=== PATIENT | female | born 1955 | race Caucasian/White ===

== ENCOUNTER → 2021-08-28 | Day surgery (SDC) | payer MEDICARE, OTHER ==
[~2021-08-28] MED LIST: Acetaminophen/HYDROcodone 325-5 MG Tab PO ONE; Bupivacaine 0.5%/EPINEPHrine 1:200,000 50 ML MDV ONE; Dexamethasone 4 MG/ML 5 ML MDV ONE; HYDROmorphone 0.5 MG/0.5 ML Syringe IVPUSH PRN; Ketorolac 30 MG/ML SDV ONE; Lactated Ringers 1,000 ML ONE; Lidocaine 1% 4 ML ONE; Lidocaine 1% with EPINEPHrine 1:100,000 20 ML MDV ONE; Lidocaine 1%/Sod Bicarbonate in NS 8.4% 1 ML Syringe IDERM PRN; Midazolam 1 MG/ML 2 ML SDV ONE; Neostigmine Methylsulfate 10 MG/10 ML MDV ONE; Ondansetron 4 MG/2 ML SDV IVPUSH PRN; Ondansetron 4 MG/2 ML SDV ONE; Prochlorperazine 10 MG/2 ML SDV IVPUSH PRN; Propofol 200 MG/20 ML SDV ONE; Rocuronium 50 MG/5 ML Vial ONE; Sodium Chloride 0.9% 10 ML Syringe FLUSH PRN; Sodium Chloride 0.9% 10 ML Syringe FLUSH SCH; ceFAZolin 2 GM Vial ONE; fentaNYL 100 MCG/2 ML SDV IVPUSH PRN; fentaNYL 250 MCG/5 ML SDV ONE
[2021-08-28] MEDS: Lactated Ringers 1,000 ML IV SCH ×2 (11:19→14:34)
== END | disposition home or self-care (01) ==
LOC: JD.SDS 11:12
PROVIDERS: ATTEND Surgery
DX: K81.1 Chronic cholecystitis (principal); G47.30 Sleep apnea, unspecified; D69.6 Thrombocytopenia, unspecified; I25.10 Atherosclerotic heart disease of native coronary artery without angina pectoris; E03.9 Hypothyroidism, unspecified; Z98.890 Other specified postprocedural states; Z79.899 Other long term (current) drug therapy; Z79.890 Hormone replacement therapy; Z88.2 Allergy status to sulfonamides; Z88.8 Allergy status to other drugs, medicaments and biological substances; Z87.891 Personal history of nicotine dependence
CPT/HCPCS: 47562; A9270; J0690; J0780; J1100; J1885; J2250; J2405; J2704; J2710; J3010; J3490; J7120

== ENCOUNTER 2022-06-18 06:44 | Day surgery (SDC) | payer MEDICARE, OTHER ==
[~2022-06-18 06:44] MED LIST changes: -Acetaminophen/HYDROcodone 325-5 MG Tab PO ONE; -Bupivacaine 0.5%/EPINEPHrine 1:200,000 50 ML MDV ONE; -Dexamethasone 4 MG/ML 5 ML MDV ONE; -HYDROmorphone 0.5 MG/0.5 ML Syringe IVPUSH PRN; -Ketorolac 30 MG/ML SDV ONE; +Lactated Ringers 1,000 ML IV SCH; -Lactated Ringers 1,000 ML ONE; -Lidocaine 1% 4 ML ONE; -Lidocaine 1% with EPINEPHrine 1:100,000 20 ML MDV ONE; -Midazolam 1 MG/ML 2 ML SDV ONE; -Neostigmine Methylsulfate 10 MG/10 ML MDV ONE; -Ondansetron 4 MG/2 ML SDV IVPUSH PRN; -Ondansetron 4 MG/2 ML SDV ONE; -Prochlorperazine 10 MG/2 ML SDV IVPUSH PRN; -Propofol 200 MG/20 ML SDV ONE; -Rocuronium 50 MG/5 ML Vial ONE; -ceFAZolin 2 GM Vial ONE; -fentaNYL 100 MCG/2 ML SDV IVPUSH PRN; -fentaNYL 250 MCG/5 ML SDV ONE
[2022-06-18] MEDS ORDERED: fentaNYL 100 MCG/2 ML SDV IVPUSH PRN (07:03)
[2022-06-18] MEDS ORDERED: HYDROmorphone 0.5 MG/0.5 ML Syringe IVPUSH PRN (07:03)
[2022-06-18] MEDS ORDERED: Ondansetron 4 MG/2 ML SDV IVPUSH PRN (07:03)
[2022-06-18] MEDS ORDERED: Midazolam 1 MG/ML 2 ML SDV ONE (07:08)
[2022-06-18] MEDS ORDERED: Propofol 200 MG/20 ML SDV ONE ×3 (07:08→07:25)
[2022-06-18] MEDS ORDERED: fentaNYL 250 MCG/5 ML SDV ONE (07:10)
[2022-06-18] MEDS ORDERED: Lidocaine 1% 2 ML ONE (07:10)
[2022-06-18] MEDS ORDERED: Rocuronium 50 MG/5 ML Vial ONE ×2 (07:10→09:30)
[2022-06-18] MEDS ORDERED: Lidocaine 1% with EPINEPHrine 1:100,000 20 ML MDV ONE (07:18)
[2022-06-18] MEDS ORDERED: Bupivacaine 0.5%/EPINEPHrine 1:200,000 50 ML MDV ONE (07:18)
[2022-06-18] MEDS ORDERED: Scopolamine 1.5 MG Transdermal Patch TRDERM PRN (07:38)
[2022-06-18] MEDS ORDERED: ceFAZolin 2 GM Vial ONE (08:21)
[2022-06-18] MEDS ORDERED: Lactated Ringers 1,000 ML IV ONE (08:30)
[2022-06-18] MEDS ORDERED: Dexamethasone 4 MG/ML 5 ML MDV ONE (08:36)
[2022-06-18] MEDS ORDERED: ePHEDrine 50 MG/ML SDV ONE (09:30)
[2022-06-18] MEDS ORDERED: Sugammadex Sodium 200 MG/2 ML VIAL ONE (09:30)
[2022-06-18] MEDS ORDERED: Ketorolac 30 MG/ML SDV ONE (10:38)
[2022-06-18] MEDS ORDERED: Ondansetron 4 MG/2 ML SDV ONE (10:38)
[2022-06-18] MEDS ORDERED: Acetaminophen/oxyCODONE 325-5 MG Tab PO PRN (10:59)
== END 2022-06-18 14:00 | disposition home or self-care (01) ==
LOC: JD.SDS 06:44
PROVIDERS: ATTEND Surgery
DX: K40.20 Bilateral inguinal hernia, without obstruction or gangrene, not specified as recurrent (principal); N63.0 Unspecified lump in unspecified breast; G47.39 Other sleep apnea; D69.6 Thrombocytopenia, unspecified; L81.9 Disorder of pigmentation, unspecified; I35.1 Nonrheumatic aortic (valve) insufficiency; G47.00 Insomnia, unspecified; E03.9 Hypothyroidism, unspecified; Z79.899 Other long term (current) drug therapy; Z79.890 Hormone replacement therapy; Z90.49 Acquired absence of other specified parts of digestive tract; Z88.2 Allergy status to sulfonamides; Z91.048 Other nonmedicinal substance allergy status; Z88.8 Allergy status to other drugs, medicaments and biological substances
CPT/HCPCS: 49650; A9270; C1727; C1765; C1781; J0690; J1100; J1885; J2250; J2405; J2704; J3010; J3490; J7120; 00830